=== PATIENT | female | born 1940 | race Hispanic/Latino ===

== ENCOUNTER 2018-06-08 10:48 | Outpatient (RCR) | payer MEDICARE, OTHER | END 2018-06-09 | LOC: PT 10:48 | PROVIDERS: ATTEND Specialist | DX: S46.021D Laceration of muscle(s) and tendon(s) of the rotator cuff of right shoulder, subsequent encounter (principal); M25.511 Pain in right shoulder; M62.81 Muscle weakness (generalized); R29.3 Abnormal posture | CPT/HCPCS: 97110 ×5; 97162; G8984; G8985 ==

== ENCOUNTER 2018-06-14 09:20 | Outpatient (RCR) | payer MEDICARE, OTHER | END 2018-07-10 | LOC: PT 09:20 | PROVIDERS: ATTEND Specialist | DX: S46.021A Laceration of muscle(s) and tendon(s) of the rotator cuff of right shoulder, initial encounter (principal); M25.511 Pain in right shoulder; M62.81 Muscle weakness (generalized); R29.3 Abnormal posture | CPT/HCPCS: 97110 ×2; G8984; G8985 ==

== ENCOUNTER 2018-08-09 09:00 | Outpatient (RCR) | payer MEDICARE, OTHER | END 2018-08-10 | LOC: PT 09:00 | PROVIDERS: ATTEND Specialist | DX: S46.021A Laceration of muscle(s) and tendon(s) of the rotator cuff of right shoulder, initial encounter (principal); M25.511 Pain in right shoulder; M62.81 Muscle weakness (generalized); R29.3 Abnormal posture ==

== ENCOUNTER 2018-09-01 10:00 | Outpatient (RCR) | payer MEDICARE, OTHER | END 2018-09-07 | LOC: PT 10:00 | PROVIDERS: ATTEND Specialist | DX: S46.021D Laceration of muscle(s) and tendon(s) of the rotator cuff of right shoulder, subsequent encounter (principal); M25.511 Pain in right shoulder; M62.81 Muscle weakness (generalized); R29.3 Abnormal posture | CPT/HCPCS: 97139 ==

== ENCOUNTER 2018-09-15 09:00 | Outpatient (RCR) | payer MEDICARE, OTHER | END 2018-10-08 | LOC: PT 09:00 | PROVIDERS: ATTEND Specialist | DX: S46.021A Laceration of muscle(s) and tendon(s) of the rotator cuff of right shoulder, initial encounter (principal); M25.511 Pain in right shoulder; M62.81 Muscle weakness (generalized); R29.3 Abnormal posture ==